=== PATIENT | male | born 1990 | race Caucasian/White ===

== ENCOUNTER 2017-06-02 07:58 | Emergency (ER) | payer OTHER ==
[2017-06-02] MEDS ORDERED: SODIUM CHLORIDE 0.9% 1,000 ML IV ONE (08:20)
--- NOTE | 2017-06-02 08:35 | ED Physician Documentation ---
History of Present Illness - Stated complaint Stated Complaint: SOA,LIGHTHEADED,IRREG FAST HB - Chief complaint Chief Complaint: Cardiac - Additonal information Additional information: hx from pt 27 y/o AD [place] male two epsides of irreg palp soa and near syncope today each lasted approx 1-2 [address] first time and at work second time no CP no recent fever cough NVD leg swelling no excess caffeine supplements OTC cough meds etc no recent travel or surgery no heavy EtOH yesterday Review of Systems Constitutional: denies: Fever, Chills Cardiac: reports: Palpitations. denies: Chest pain / pressure Respiratory: reports: Dyspnea. denies: Cough GI: denies: Abdominal Pain, Nausea, Vomiting Neurologic: reports: Near syncope Endocrine: denies: Easy bruising / bleeding Immunocompromised: denies: Immunocompromised PD PAST MEDICAL HISTORY - Past Medical History Past Medical History: No - Past Surgical History Past Surgical History: Yes - Present Medications Home Medications: Ambulatory Orders Medication Instructions Recorded Confirmed No Known Home Medications [No 06/02/17 06/02/17 Known Home Medications] - Allergies Allergies/Adverse Reactions: Allergies Allergy/AdvReac Type Severity Reaction Status Date / Time No Known Drug Allergies Allergy Verified 06/02/17 08:07 - Social History Does the pt smoke?: No Smoking Status: Never smoker Does the pt drink ETOH?: Yes Does the pt have substance abuse?: No - Immunizations Immunizations are current?: Yes - POLST Patient has POLST: No PD ED PE NORMAL - Vitals Vital signs reviewed: Yes - HEENT HEENT: PERRL - Neck Neck: Supple, no meningeal sign - Cardiac Cardiac: RRR (occ irregularity but mostly reg, no murmur appreciated) - Respiratory Respiratory: No respiratory distress, Clear bilaterally - Abdomen Abdomen: Soft, Non tender - Derm Derm: Normal color - Extremities Extremities: No deformity, Normal ROM s pain, No edema, No calf tenderness / cord - Neuro Neuro: Alert and oriented X 3 Results - Vitals Vitals: Vital Signs - 24 hr 06/02/17 06/02/17 06/02/17 08:00 08:14 08:30 Temperature 36.3 C L Heart Rate 91 78 81 Respiratory 16 16 16 Rate Blood Pressure 184/104 H 165/101 H 142/91 H O2 Saturation 100 98 98 06/02/17 06/02/17 06/02/17 08:45 09:00 09:30 Temperature Heart Rate 77 78 94 Respiratory 12 12 16 Rate Blood Pressure 133/76 H 110/88 H 137/99 H O2 Saturation 98 97 98 Oxygen O2 Source Room air - EKG (time done) 0803 Rate: Rate (enter#) Rhythm: NSR [place]: Normal Intervals: Normal IA QRS: Normal Ischemia: Non specific changes Other comments: Other comments (no delta wave) - Tele (time rhythm occurred) 0830 Telemetry / rhythm strip: Other (PACs and PVCs) - Labs Labs: Laboratory Tests 06/02/17 06/02/17 06/02/17 08:33 08:33 08:33 WBC 4.9 RBC 5.02 Hgb 16.3 Hct 46.9 MCV 93.4 MCH 32.5 H MCHC 34.8 RDW 12.4 Plt Count 224 MPV 7.7 Neut # 3.1 Lymph # 1.3 L [place] # 0.5 Eos # 0.1 Baso # 0.0 Absolute Nucleated RBC 0.00 Nucleated RBC % 0.0 D-Dimer Sodium 139 Potassium 3.8 Chloride 101 Carbon Dioxide 26 Anion Gap 12.0 BUN 11 Creatinine 1.2 Estimated GFR (MDRD) 74 L Glucose 94 Calcium 9.3 Total Bilirubin 0.6 AST 22 ALT 17 Alkaline Phosphatase 47 Troponin I < 0.04 Total Protein 7.6 Albumin 4.5 Globulin 3.1 Albumin/Globulin Ratio 1.5 Lipase 21 L 06/02/17 08:33 WBC RBC Hgb Hct MCV MCH MCHC RDW Plt Count MPV Neut # Lymph # [place] # Eos # Baso # Absolute Nucleated RBC Nucleated RBC % D-Dimer < 200.0 L Sodium Potassium Chloride Carbon Dioxide Anion Gap BUN Creatinine Estimated GFR (MDRD) Glucose Calcium Total Bilirubin AST ALT Alkaline Phosphatase Troponin I Total Protein Albumin Globulin Albumin/Globulin Ratio Lipase PD MEDICAL DECISION MAKING - ED course ED course: PACS and PVCs on tele somewhat dec after IVF vut still occ labs fine no hyoxia soa leg swelling and neg ddimer so doubt PE as cause feel safe to dc but rec fup such as escho and holter Departure - Departure Disposition: 01 Home, Self Care Clinical Impression: Palpitations Condition: Good Instructions: ED Palpitations Follow-Up: MAGDALENA Mary [Provider Group] Comments: The labs were all fine - do not suggest a heart attack, blood clot in your lung , no anemia, normal electrolytes. The monitor did show extra atrial and ventricular beats causing the palpitations - but always occurring singly not in runs. So it is safe for you to go home for now But you need to get further testing beyond what can be done in the ER - I recommend an ultrasound of your heart (echocardiogram) and a wear at home heart monitor. Recommend no PT or deployment until your work up is complete Avoid caffeine and energy supplements. Return if worse as we discussed
[2017-06-02 08:42] LABS: BASOPHILS % (AUTO) 0.7 %; EOSINOPHILS # (AUTO) 0.1 10^3/uL (0.0-0.7); EOSINOPHILS % (AUTO) 1.2 %; HGB - HEMOGLOBIN 16.3 g/dL (14.0-18.0); LYMPHOCYTES # (AUTO) 1.3 10^3/uL (1.5-3.5); LYMPHOCYTES % (AUTO) 26.2 %; MEAN CORPUSCULAR HEMOGLOBIN 32.5 pg (27.0-31.0); MEAN CORPUSCULAR HGB CONC 34.8 g/dL (32.0-36.0); MEAN CORPUSCULAR VOLUME 93.4 fL (80.0-94.0); MEAN PLATELET VOLUME 7.7 fL (7.4-11.4); MONOCYTES # (AUTO) 0.5 10^3/uL (0.0-1.0); MONOCYTES % (AUTO) 10.2 %; NEUTROPHILS # (AUTO) 3.1 10^3/uL (1.5-6.6); NEUTROPHILS % (AUTO) 61.7 %; PLT - PLATELET COUNT 224 10^3/uL (130-450); RED BLOOD COUNT 5.02 10^6/uL (4.70-6.10); RED CELL DISTRIBUTION WIDTH 12.4 % (12.0-15.0); WHITE BLOOD COUNT 4.9 x10^3/uL (4.8-10.8)
[2017-06-02 08:57] LABS: ALBUMIN 4.5 g/dL (3.2-5.5); ALBUMIN/GLOBULIN RATIO 1.5 (1.0-2.2); BILIRUBIN,TOTAL 0.6 mg/dL (0.2-1.0); CALCIUM 9.3 mg/dL (8.5-10.3); CREATININE 1.2 mg/dL (0.6-1.2); TOTAL PROTEIN 7.6 g/dL (6.7-8.2)
[2017-06-02 10:33] VITALS: BP 151/94
== END 2017-06-02 10:40 | disposition home or self-care (01) ==
LOC: ED 07:58
DX: R00.2 Palpitations (principal)
CPT/HCPCS: 36415; 80053; 83690; 84484; 85025; 85379; 93005; 96360; 96361; 99284